=== PATIENT | female | born 1955 | race Hispanic/Latino ===

== ENCOUNTER 2017-02-01 16:36 | Emergency (ER) | payer MEDICARE ==
[2017-02-01 17:55] LABS: Hematocrit 35.9 % (30.3-42.9); Hemoglobin 11.6 gm/dl (10.1-14.3); Mean Corpuscular HGB Conc 32 % (30-34); Mean Corpuscular Hemoglobin 31 pg (28-32); Mean Corpuscular Volume 98 fl (79-97); Red Blood Count 3.68 M/mm3 (3.65-5.03); Red Cell Distribution Width 15.7 % (13.2-15.2); White Blood Count 2.8 K/mm3 (4.5-11.0)
[2017-02-01 18:13] LABS: Anion Gap 18 mmol/L; BUN/Creatinine Ratio 16.66; Blood Urea Nitrogen 20 mg/dL (7-17); Calcium 7.5 mg/dL (8.4-10.2); Carbon Dioxide 20 mmol/L (22-30); Chloride 110.4 mmol/L (98-107); Glucose 80 mg/dL (65-100); Potassium 5.9 mmol/L (3.6-5.0); Sodium 142 mmol/L (137-145)
[2017-02-01 18:32] LABS: Blastocytes % (Manual) 0 %
[2017-02-01 18:35] LABS: Diff Status Complete; Hypochromasia 1+; Ovalocytes Few; Platelet Estimate Appears Decreased
[2017-02-01 18:36] LABS: Platelet Count 71 K/mm3 (140-440)
[2017-02-02] MEDS ORDERED: ROXICODONE PO ONE (00:53)
[2017-02-02] MEDS ORDERED: TORADOL IM ONE (00:53)
[2017-02-02 01:22] VITALS: BP 136/74
--- NOTE | 2017-02-02 01:57 | Emergency Department Report ---
ED General Adult HPI - General Chief complaint: Chest Pain Stated complaint: CHEST PAIN Time Seen by Provider: 02/02/17 00:40 Source: patient Mode of arrival: Wheelchair Limitations: No Limitations - History of Present Illness Initial comments: This is a 61-year-old female. She is previously unknown to me. Patient has a history of liver transplant in 1999, and takes Prograf. She follows at [facility] for this. Has a history of renal insufficiency, arthritis, anxiety, herniated disks. Patient presents to the ER complaining of left-sided chest wall pain. The pain does not relate to the back, arms or neck. Patient denies vomiting, diaphoresis. There is no leg pain. There is no leg swelling. No recent trips greater than 4 hours. No recent hospital admissions. Denies severe shortness of breath to me. Patient requests medication for anxiety. She also requests hydromorphone for pain. She reports Motrin does not work for her, tramadol makes her crazy, and she cannot tolerate oxycodone. She reports Percocet also works for her. -: Gradual Location: chest Radiation: non-radiation Quality: aching Consistency: constant Improves with: medication, rest Worsens with: movement Associated Symptoms: chest pain. denies: weakness - Related Data Home Medications Medication Instructions Recorded Confirmed Last Taken ALPRAZolam [Xanax] 1 mg PO TID PRN 09/06/13 09/06/13 09/06/13 14:48 Allergies Allergy/AdvReac Type Severity Reaction Status Date / Time No Known Allergies Allergy Unverified 09/06/13 14:47 ED Review of Systems ROS: Stated complaint: CHEST PAIN Other details as noted in HPI Constitutional: denies: fever Eyes: denies: vision change ENT: denies: epistaxis Respiratory: see HPI Cardiovascular: chest pain Gastrointestinal: vomiting Genitourinary: denies: dysuria Musculoskeletal: denies: back pain Skin: denies: lesions Neurological: denies: headache Psychiatric: anxiety ED Past Medical Hx - Past Medical History Previous Medical History?: Yes Hx Liver Disease: Yes (liver transplant 05/27/2000) Hx Renal Disease: Yes (RF x 5 per pt) Hx Arthritis: Yes Hx Psychiatric Treatment: Yes (anxiety) Additional medical history: (3) herniated discs lower back - Surgical History Past Surgical History?: Yes Hx Cholecystectomy: Yes Additional Surgical History: liver transplant 05/2000. ovarian cyst removal - Social History Smoking Status: Current Every Day Smoker Substance Use Type: None - Medications Home Medications: Home Medications Medication Instructions Recorded Confirmed Last Taken Type ALPRAZolam [Xanax] 1 mg PO TID PRN 09/06/13 09/06/13 09/06/13 14:48 History ED Physical Exam - General Limitations: No Limitations General appearance: alert, in no apparent distress - Head Head exam: Present: atraumatic, normocephalic - Eye Eye exam: Present: normal appearance, EOMI. Absent: nystagmus - ENT ENT exam: Present: normal exam, normal orophraynx, mucous membranes moist, normal external ear exam - Neck Neck exam: Present: normal inspection. Absent: tenderness, meningismus - Respiratory Respiratory exam: Present: normal lung sounds bilaterally, chest wall tenderness (there is reproducible anterior left-sided chest wall tenderness. There is no redness, pus, streaking or crepitus. During the breast exam, I am escorted by nurse BLADIMIR West). Absent: respiratory distress, wheezes, rales, rhonchi, stridor - Cardiovascular Cardiovascular Exam: Present: regular rate, normal rhythm, normal heart sounds. Absent: bradycardia, tachycardia, irregular rhythm, systolic murmur, diastolic murmur, rubs, gallop - GI/Abdominal GI/Abdominal exam: Present: soft, normal bowel sounds. Absent: distended, tenderness, guarding, rebound, rigid, pulsatile mass - Extremities Exam Extremities exam: Present: normal inspection, full ROM, normal capillary refill. Absent: tenderness, pedal edema, joint swelling, calf tenderness - Back Exam Back exam: Present: normal inspection, full ROM. Absent: tenderness, CVA tenderness (R), CVA tenderness (L), muscle spasm, paraspinal tenderness, vertebral tenderness - Neurological Exam Neurological exam: Present: alert, oriented X3, normal gait, other (Extraocular movements intact. Tongue midline. No facial droop. Facial sensation intact to light touch in the V1, V2, V3 distribution bilaterally. 5 and 5 strength in 4 extremities.. Sensation is intact to light touch in 4 extremities.). Absent : motor sensory deficit - Psychiatric Psychiatric exam: Present: normal affect, normal mood. Absent: homicidal ideation, suicidal ideation - Skin Skin exam: Present: warm, dry, intact, normal color. Absent: rash ED Course Vital Signs 02/01/17 02/02/17 02/02/17 16:50 00:40 01:02 Temperature 98.9 F 98 F Pulse Rate 60 81 Respiratory 18 16 12 Rate Blood Pressure 137/64 Blood Pressure 136/74 [Left] O2 Sat by Pulse 98 99 99 Oximetry - Reevaluation(s) Reevaluation #1: 02/02/17 01:58 Differential diagnosis: Drug-seeking behavior, costochondritis, acute coronary syndrome, pneumonia, GERD, reflux, pulmonary embolus Assessment and plan: 61-year-old female with complaint of 3 days of chronic left -sided reproducible chest wall pain. No pulmonary embolus or DVT risk factors. Low risk by well's criteria. EKG is morphologically within normal limits, and unchanged from prior EKG. Troponins negative 3. While interviewing the patient, she is very calm, and makes multiple rest for IV hydromorphone. I explained to the patient that I did not think IV hydromorphone was appropriate. I offered her tramadol, Toradol, Motrin, nitroglycerin, oxycodone. She refused all of these. The patient is certainly alert and oriented 3, and exhibits decision-making capacity, and is free from distracting injury. The patient eloped from the emergency room, stating to staff "kiss my ass." Highly suspect that the patient is drug-seeking. The patient refused to sign out AGAINST MEDICAL ADVICE. ED Medical Decision Making - Lab Data Result diagrams: 02/01/17 17:41 02/01/17 17:41 Vital Signs 02/01/17 02/02/17 02/02/17 16:50 00:40 01:02 Temperature 98.9 F 98 F Pulse Rate 60 81 Respiratory 18 16 12 Rate Blood Pressure 137/64 Blood Pressure 136/74 [Left] O2 Sat by Pulse 98 99 99 Oximetry Lab Results 02/01/17 02/01/17 02/01/17 Range/Units 17:41 17:41 20:40 WBC 2.8 L (4.5-11.0) K/mm3 RBC 3.68 (3.65-5.03) M/mm3 Hgb 11.6 (10.1-14.3) gm/dl Hct 35.9 (30.3-42.9) % MCV 98 H (79-97) fl MCH 31 (28-32) pg MCHC 32 (30-34) % RDW 15.7 H (13.2-15.2) % Plt Count 71 L (140-440) K/mm3 Alfalfa % (Auto) [employer] Add Manual Diff Complete Total Counted 100 Seg Neuts % (Manual) 45.0 (40.0-70.0) % Band Neutrophils % 2.0 % Lymphocytes % (Manual) 25.0 (13.4-35.0) % Reactive Lymphs % (Man) 0 % Monocytes % (Manual) 20.0 H (0.0-7.3) % Eosinophils % (Manual) 7.0 H (0.0-4.3) % Basophils % (Manual) 1.0 (0.0-1.8) % Metamyelocytes % 0 % Myelocytes % 0 % Promyelocytes % 0 % Blast Cells % 0 % Nucleated RBC % Not Reportable Seg Neutrophils # Man 1.3 L (1.8-7.7) K/mm3 Band Neutrophils # 0.1 K/mm3 Lymphocytes # (Manual) 0.7 L (1.2-5.4) K/mm3 Abs React Lymphs (Man) 0.0 K/mm3 Monocytes # (Manual) 0.6 (0.0-0.8) K/mm3 Eosinophils # (Manual) 0.2 (0.0-0.4) K/mm3 Basophils # (Manual) 0.0 (0.0-0.1) K/mm3 Metamyelocytes # 0.0 K/mm3 Myelocytes # 0.0 K/mm3 Promyelocytes # 0.0 K/mm3 Blast Cells # 0.0 K/mm3 WBC Morphology Not Reportable Hypersegmented Neuts Not Reportable Hyposegmented Neuts Not Reportable Hypogranular Neuts Not Reportable Smudge Cells Not Reportable Toxic Granulation Not Reportable Toxic Vacuolation Not Reportable Dohle Bodies Not Reportable Pelger-Huet Anomaly Not Reportable Seble Rods Not Reportable Platelet Estimate Appears decreased Clumped Platelets Not Reportable Plt Clumps, EDTA Not Reportable Large Platelets Not Reportable Giant Platelets Not Reportable Platelet Satelliting Not Reportable Plt Morphology Comment Not Reportable RBC Morphology Not Reportable Dimorphic RBCs Not Reportable Polychromasia Not Reportable Hypochromasia 1+ Poikilocytosis Not Reportable Anisocytosis Not Reportable Microcytosis Not Reportable Macrocytosis Not Reportable Spherocytes Not Reportable Pappenheimer Bodies Not Reportable Sickle Cells Not Reportable Target Cells Not Reportable Tear Drop Cells Not Reportable Ovalocytes Few Helmet Cells Not Reportable [place] Bodies Not Reportable [place] Rings Not Reportable Lory Cells Not Reportable Bite Cells Not Reportable Crenated Cell Not Reportable Elliptocytes Not Reportable Acanthocytes (Spur) Not Reportable Rouleaux Not Reportable Hemoglobin C Crystals Not Reportable Schistocytes Not Reportable Malaria parasites Not Reportable Odin Bodies Not Reportable Hem Pathologist Commnt No Sodium 142 (137-145) mmol/L Potassium 5.9 H (3.6-5.0) mmol/L Chloride 110.4 H (98-107) mmol/L Carbon Dioxide 20 L (22-30) mmol/L Anion Gap 18 mmol/L BUN 20 H (7-17) mg/dL Creatinine 1.2 (0.7-1.2) mg/dL Estimated GFR 46 ml/min BUN/Creatinine Ratio 16.66 % Glucose 80 (65-100) mg/dL Calcium 7.5 L (8.4-10.2) mg/dL Troponin T < 0.010 < 0.010 (0.00-0.029) ng/mL 02/01/17 Range/Units 23:00 WBC (4.5-11.0) K/mm3 RBC (3.65-5.03) M/mm3 Hgb (10.1-14.3) gm/dl Hct (30.3-42.9) % MCV (79-97) fl MCH (28-32) pg MCHC (30-34) % RDW (13.2-15.2) % Plt Count (140-440) K/mm3 Alfalfa % (Auto) Add Manual Diff Total Counted Seg Neuts % (Manual) (40.0-70.0) % Band Neutrophils % % Lymphocytes % (Manual) (13.4-35.0) % Reactive Lymphs % (Man) % Monocytes % (Manual) (0.0-7.3) % Eosinophils % (Manual) (0.0-4.3) % Basophils % (Manual) (0.0-1.8) % Metamyelocytes % % Myelocytes % % Promyelocytes % % Blast Cells % % Nucleated RBC % Seg Neutrophils # Man (1.8-7.7) K/mm3 Band Neutrophils # K/mm3 Lymphocytes # (Manual) (1.2-5.4) K/mm3 Abs React Lymphs (Man) K/mm3 Monocytes # (Manual) (0.0-0.8) K/mm3 Eosinophils # (Manual) (0.0-0.4) K/mm3 Basophils # (Manual) (0.0-0.1) K/mm3 Metamyelocytes # K/mm3 Myelocytes # K/mm3 Promyelocytes # K/mm3 Blast Cells # K/mm3 WBC Morphology Hypersegmented Neuts Hyposegmented Neuts Hypogranular Neuts Smudge Cells Toxic Granulation Toxic Vacuolation Dohle Bodies Pelger-Huet Anomaly Seble Rods Platelet Estimate Clumped Platelets Plt Clumps, EDTA Large Platelets Giant Platelets Platelet Satelliting Plt Morphology Comment RBC Morphology Dimorphic RBCs Polychromasia Hypochromasia Poikilocytosis Anisocytosis Microcytosis Macrocytosis Spherocytes Pappenheimer Bodies Sickle Cells Target Cells Tear Drop Cells Ovalocytes Helmet Cells [place]hill[place] Bodies [place] Rings [place] Cells Bite Cells Crenated Cell Elliptocytes Acanthocytes (Spur) Rouleaux Hemoglobin C Crystals Schistocytes Malaria parasites Odin Bodies Hem Pathologist Commnt Sodium (137-145) mmol/L Potassium (3.6-5.0) mmol/L Chloride (98-107) mmol/L Carbon Dioxide (22-30) mmol/L Anion Gap mmol/L BUN (7-17) mg/dL Creatinine (0.7-1.2) mg/dL Estimated GFR ml/min BUN/Creatinine Ratio % Glucose (65-100) mg/dL Calcium (8.4-10.2) mg/dL Troponin T < 0.010 (0.00-0.029) ng/mL - EKG Data 02/02/17 03:01 Normal sinus, 62 bpm, normal axis, normal intervals, not morphologically consistent with STEMI, appears unchanged from prior EKG from 01/27/2015. - Radiology Data Radiology results: image reviewed interpreted by me: X-ray of the chest is negative for acute disease. Critical care attestation.: If time is entered above; I have spent that time in minutes in the direct care of this critically ill patient, excluding procedure time. ED Disposition Clinical Impression: Chest pain Disposition: LEFT AGAINST MEDICAL ADVICE Is pt being admited?: No Does the pt Need Aspirin: No Condition: Undetermined Instructions: Chest Pain (ED) Referrals: PRIMARY CARE,MD [Primary Care Provider] - 3-5 Days
--- NOTE | 2017-02-02 03:13 | XRay Report ---
FINAL REPORT PROCEDURE: XR CHEST ROUTINE 2V TECHNIQUE: PA and lateral chest radiographs were obtained. CPT 19134 HISTORY: cough, chest pain COMPARISON: No prior studies are available for comparison. FINDINGS: Heart: Normal. Mediastinum/Vessels: Normal. Lungs/Pleural space: Mild atelectasis bilateral lower lungs. No evidence of an acute effusion or pneumothorax. Bony thorax: No acute osseous abnormality. Other: IMPRESSION: Mild atelectasis bilateral lower lungs..
== END 2017-02-02 01:30 | disposition left against medical advice (07) ==
LOC: ED 16:36
DX: R07.9 Chest pain, unspecified (principal); M19.90 Unspecified osteoarthritis, unspecified site; F41.9 Anxiety disorder, unspecified; F17.200 Nicotine dependence, unspecified, uncomplicated
CPT/HCPCS: 36415; 71020; 80048; 84484; 85007; 85025; 93005; 93010

== ENCOUNTER 2017-06-19 11:47 | Outpatient (CLI) | payer MEDICARE ==
--- NOTE | 2017-06-19 15:02 | XRay Report ---
BILATERAL TIBIA AND FIBULA RADIOGRAPHS INDICATION: Fall. COMPARISON: None similar. FINDINGS: AP and lateral radiographs of bilateral tibia and fibula demonstrate demineralized bones with intact articulation. Unremarkable soft tissues. Imaged knee and ankle articulations also appear within normal limits, to the extent assessed. CONCLUSION: No acute tibia or fibular radiographic abnormality bilaterally. Thank you for the opportunity to participate in this patient's care.
--- NOTE | 2017-06-19 15:06 | XRay Report ---
BILATERAL HIP RADIOGRAPHS WITH PELVIS INDICATION: Fall. COMPARISON: None similar. FINDINGS: An AP pelvic radiograph with frog-leg projection of bilateral hips demonstrate normal femoral head contours bilaterally with a Zickel nail noted on the right. Imaged bilateral SI and hip joints appear intact. Normal imaged lower lumbar spine. Nonobstructive bowel gas pattern. Few pelvic phleboliths. Atherosclerotic vascular calcifications and numerous pelvic phleboliths. CONCLUSION: No acute radiographic abnormality with right hip postsurgical changes and vascular calcifications noted, as described. Thank you for the opportunity to participate in this patient's care.
--- NOTE | 2017-06-19 15:13 | XRay Report ---
Bilateral knees, 3 views of each: Trauma, pain. Routine views of the right knee demonstrate bony demineralization. No fractures and no displacement is noted. The articular margins are smooth. There is no swelling noted. Images of the left knee is suspicious for a small avulsion of bone from the lateral femoral condyle. The bones are diffusely demineralized as on the other side but no other significant findings including the absence of obvious soft tissue swelling. Impressions: Suspicion of femoral avulsion fracture. Recommend correlation to this location and CT scan if appropriate. Bilateral ankles: Trauma, pain. The bones are demineralized. No fractures and no displacement is noted. Mild bony demineralization. No swelling. Impression: Normal exam.
== END 2017-06-19 11:48 | disposition home or self-care (01) ==
LOC: XRAY 11:47
PROVIDERS: ATTEND Psychiatry & Neurology Neurology
DX: I70.0 Atherosclerosis of aorta (principal); I87.8 Other specified disorders of veins; W19.XXXA Unspecified fall, initial encounter; Y93.89 Activity, other specified; Y92.89 Other specified places as the place of occurrence of the external cause; Y99.8 Other external cause status; F17.200 Nicotine dependence, unspecified, uncomplicated
CPT/HCPCS: 73521